=== PATIENT | male | born 1990 | race African-American/Black ===

== ENCOUNTER 2020-05-14 18:17 | Emergency (ER) | payer OTHER ==
[~2020-05-14] VITALS: Ht 172.7 cm; Wt 87.1 kg
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
--- NOTE | 2020-05-14 18:43 | NUR ---
Edward boothe in EDM - 05/14/20 at 1845 by NIMCO VERBAL ORDER RECEIVED TO GIVEN MORPHINE 4MG IV X 1 AND ZOFRAN 4MG IV X 1 FOR L LOWER LEG PAIN. NOTED AND CARRIED OUT
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
[2020-05-14 20:17] VITALS: BP 126/83
== END 2020-05-14 20:17 | disposition home or self-care (01) ==
LOC: ER 18:20
DX: F10.129 Alcohol abuse with intoxication, unspecified (principal); R45.1 Restlessness and agitation; Y90.9 Presence of alcohol in blood, level not specified; Z02.89 Encounter for other administrative examinations; V49.49XA Driver injured in collision with other motor vehicles in traffic accident, initial encounter; Y93.89 Activity, other specified; Y92.488 Other paved roadways as the place of occurrence of the external cause; Y99.8 Other external cause status

== ENCOUNTER 2020-06-18 11:35 | Emergency (ER) | payer OTHER ==
[~2020-06-18] VITALS: Ht 172.7 cm; Wt 81.6 kg
--- NOTE | 2020-06-18 11:41 | NUR ---
bibra[facility]/PD. in custody c/o being "weak and dizzy since this am" bg 70 travel pta. to ER bed 11, hooked to monitor, provided w warm blanket, awaiting MD mendoza.
--- NOTE | 2020-06-18 11:41 | NUR ---
Dr Baird at bedside
[2020-06-18 12:10] LABS: BASOPHILS % (AUTO) 0.4 % (0.0-2.0); EOSINOPHILS % (AUTO) 0.1 % (0.0-6.0); HEMATOCRIT 47 % (39-51); HEMOGLOBIN 15.4 g/dL (13.5-17.5); LYMPHOCYTES # (AUTO) 1.3 /CMM (0.8-4.8); LYMPHOCYTES % (AUTO) 15.9 % (20.0-44.0); MEAN CORPUSCULAR HGB CONC 33 g/dl (31.0-36.0); MEAN CORPUSCULAR VOLUME 96 fL (80-96); MONOCYTES # (AUTO) 0.5 /CMM (0.1-1.30); MONOCYTES % (AUTO) 5.9 % (2.0-12.0); NEUTROPHILS # (AUTO) 6.3 /CMM (1.8-8.9); NEUTROPHILS % (AUTO) 77.7 % (43.0-81.0); PLATELET COUNT (AUTO) 278 /CMM (150-450); RED BLOOD CELL COUNT(AUTO) 4.87 MIL/uL (4.5-6.0); WHITE BLOOD COUNT (AUTO) 8.1 K/uL (4.3-11.0)
[2020-06-18 12:19] LABS: CALCIUM, SERUM 9.2 mg/dL (8.5-10.1); CARBON DIOXIDE 24 mmol/L (21-32); CHLORIDE 101 mmol/L (98-107); GLUCOSE 75 mg/dL (74-106); SODIUM SERUM 138 mmol/L (136-145); UREA NITROGEN, BLOOD 15 mg/dL (7-18)
--- NOTE | 2020-06-18 12:43 | NUR ---
Patient discharged in custody of Officer [employer] [id number] in stable condition. Written and verbal after care instructions given. [employer] Officer and patient verbalizes understanding of instruction.
[2020-06-18 12:45] VITALS: BP 121/70
== END 2020-06-18 12:45 ==
LOC: ER 11:38
DX: R42 Dizziness and giddiness (principal); Z88.8 Allergy status to other drugs, medicaments and biological substances
CPT/HCPCS: 36415; 71045-TC; 80048-TC; 84484-TC; 85025-TC